=== PATIENT | male | born 1970 | race African-American/Black ===

== ENCOUNTER 2016-08-13 12:37 | Day surgery (SDC) | payer OTHER ==
[~2016-08-13] VITALS: Ht 167.6 cm; Wt 64.0 kg
[2016-08-13 12:45] VITALS: BP 140/89
[2016-08-13 14:59] LABS: METH RESISTANT S AUREUS PCR POSITIVE (NEGATIVE); PROBE CHECK PASS
[2016-08-13 18:28] VITALS: BP 148/98
[2016-08-13 19:30] VITALS: BP 148/90
== END 2016-08-13 19:45 | disposition home or self-care (01) ==
LOC: SDC 12:37
PROVIDERS: Orthopaedic Surgery Sports Medicine
PROC: 0LQS0ZZ Repair Right Ankle Tendon, Open Approach (ICD-10-PCS; principal; 2016-08-13)
DX: S86.011A Strain of right Achilles tendon, initial encounter (principal); Y93.67 Activity, basketball
CPT/HCPCS: 87641; J0131; J0330; J0360; J0690; J1100; J1170; J1885; J2250; J2405; J3010